=== PATIENT | male | born 1995 | race African-American/Black ===

== ENCOUNTER 2017-01-23 15:53 | Emergency (ER) | payer OTHER ==
[~2017-01-23] VITALS: Ht 175.3 cm; Wt 100.0 kg
[2017-01-23 15:57] VITALS: TEMP 99.3
[2017-01-23] MEDS ORDERED: PREDNISONE20 MG PO (17:33)
[2017-01-23 17:50] VITALS: BP 136/81; PULSE 95
== END 2017-01-23 17:50 | disposition home or self-care (01) ==
LOC: COL.ER 15:53
DX: J06.9 Acute upper respiratory infection, unspecified (principal); J45.909 Unspecified asthma, uncomplicated; F17.210 Nicotine dependence, cigarettes, uncomplicated
CPT/HCPCS: J7512

== ENCOUNTER 2017-03-01 10:23 | Emergency (ER) | payer OTHER ==
[~2017-03-01] VITALS: Ht 177.8 cm; Wt 100.0 kg
[~2017-03-01 10:23] MED LIST: PREDNISONE20 MG PO
[2017-03-01 10:26] VITALS: BP 174/87; TEMP 97.9
[2017-03-01] MEDS ORDERED: ATARAX 25MG25 MG/TAB PO (12:23)
[2017-03-01 12:51] VITALS: PULSE 67
== END 2017-03-01 12:52 | disposition home or self-care (01) ==
LOC: COL.ER 10:23
DX: S40.862A Insect bite (nonvenomous) of left upper arm, initial encounter (principal); S00.86XA Insect bite (nonvenomous) of other part of head, initial encounter; W57.XXXA Bitten or stung by nonvenomous insect and other nonvenomous arthropods, initial encounter; J45.909 Unspecified asthma, uncomplicated

== ENCOUNTER 2017-10-01 12:21 | Emergency (ER) | payer OTHER ==
[~2017-10-01] VITALS: Ht 175.3 cm; Wt 100.0 kg
[2017-10-01 12:21] VITALS: BP 153/83; TEMP 98.2
[~2017-10-01 12:21] MED LIST changes: +ATARAX 25MG25 MG/TAB PO
[2017-10-01] MEDS ORDERED: PROAIR HFA0.09 MG/AC IH (13:22)
[2017-10-01 13:32] VITALS: PULSE 74
[2017-10-01] MEDS ORDERED: ZITHROMAX Z PA250 MG PO (13:39)
== END 2017-10-01 13:40 | disposition home or self-care (01) ==
LOC: COL.ER 12:21
DX: J45.909 Unspecified asthma, uncomplicated (principal)
CPT/HCPCS: J8540